=== PATIENT | female | born 1965 | race Caucasian/White ===

== ENCOUNTER → 2021-03-10 07:26 | Outpatient (CLI) | payer OTHER, SELFPAY ==
--- NOTE | ~2021-03-10 | US_ITS ---
EXAMINATION: US right upper quadrant DATE: 03/10/2021 08:22 INDICATION: Elevated liver function tests TECHNIQUE: Multiple grayscale and Doppler ultrasound images of the abdomen were obtained. COMPARISON: None available FINDINGS: The head, body, and tail of the pancreas are normal. The liver demonstrates increased echog enicity, heterogenous echotexture, and decreased through transmission. No surface nodularity. Normal hepatopetal flow in the main portal vein. The gallbladder is surgically absent. The normal common renee e duct measures 4 mm. IMPRESSION: 1. Diffuse hepatic steatosis. Reviewed, dictated and finalized at location A. RACTS ADMINISTRATOR
== END ==
PROVIDERS: PCP Nurse Practitioner Family
DX: R94.5 Abnormal results of liver function studies (principal); K76.0 Fatty (change of) liver, not elsewhere classified
CPT/HCPCS: 76705

== ENCOUNTER → 2022-01-03 16:53 | Outpatient (CLI) | payer OTHER, SELFPAY ==
--- NOTE | ~2022-01-03 | XR_ITS ---
XR hip LT min 2V 01/03/2022 17:14 Indication: Left hip pain Procedure: 2 views left hip Comparison: No prior studies for comparison. Findings: Moderate osteoarthritis of the left hip. No fracture or traumatic malalignment. No signific ant soft tissue abnormality. No foreign body. Impression: 1: Moderate osteoarthritis of the left hip. Reviewed, dictated and finalized at location A. Impression: 1: Moderate osteoarthritis of the left hip.
== END ==
PROVIDERS: PCP Chiropractor; Visit Provider Chiropractor
DX: M16.12 Unilateral primary osteoarthritis, left hip (principal)
CPT/HCPCS: 73502

== ENCOUNTER → 2022-11-05 12:49 | Outpatient (CLI) | payer OTHER, SELFPAY ==
--- NOTE | ~2022-11-05 | MR_ITS ---
EXAMINATION: MR hip LT wo/w con DATE: 11/05/2022 13:51 INDICATION: Left hip pain TECHNIQUE: Magnetic resonance imaging (MRI) of the left hip was performed without and with 15 mL Mul tihance intravenous contrast. Sequences included full-field axial PD-weighted FS FSE, T1-weighted FSE , T1-weighted FS FSE, coronal of the pelvis with PD-weighted FS FSE, T2-weighted FSE and T1-weighted FSE, small field of view of the left hip with axial PD-weighted FS FSE, sagittal PD-weighted FS FSE, coronal PD-weighted FS FSE and coronal T2 weighted FSE. Additional radial T1-weighted FGR oriented orthogonal to the acetabular rim were obtained for evaluation of the labrum. Postcontrast axial T1-we ighted FS FSE of the pelvis and coronal T1-weighted FS FSE of the left hip. COMPARISON: Left hip radiographs dated 01/03/2022 FINDINGS: Bones/labrum/cartilage: Alignment is normal. No fracture, avascular necrosis or pathologic marrow replacing process. Moderat e osteoarthritis at the bilateral hips with subarticular changes at the anterosuperior right acetabul um and at the anterior and anterosuperior to posterior superior left acetabulum. Tear at the anterosu perior to superolateral left acetabular labrum. Fluid: Relatively symmetric small amount of enhancing synovitis without significant joint effusion at both h ips. No abnormal fluid collections. Soft tissues: Normal and symmetric muscle bulk and signal in the pelvis and visualized proximal thighs. There are e nthesophytes at the greater trochanteric insertions of the bilateral gluteus medius medius and minimu s tendons. There is retraction of the myotendinous junction of the right gluteus medius tendon to 4 c m proximal to the greater trochanteric insertion with thinning of the tendon and without surrounding edema consistent with chronic partial tear. The bilateral rectus femoris, Iliopsoas and proximal hams tring tendons are normal. The uterus is not identified and has likely been surgically resected. Li mited evaluation of visceral organs of the pelvis is otherwise unremarkable. No pathologically enlar ged pelvic/inguinal lymphadenopathy. IMPRESSION: 1. Tear of the anterosuperior to superolateral left acetabular labrum with moderate osteoarthritis at the left hip. Similar findings suggested but not diagnostically evaluated the contralateral right hi p on the larger [id number] images. 2. 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 Reviewed, dictated and finalized at location L. IMPRESSION: 1. Tear of the anterosuperior to superolateral left acetabular labrum with mode rate osteoarthritis at the left hip. Similar findings suggested but not diagnos tically evaluated the contralateral right hip on the larger [id number] image s. 2. 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
== END ==
DX: M25.552 Pain in left hip (principal); S73.192A Other sprain of left hip, initial encounter; M16.12 Unilateral primary osteoarthritis, left hip; S76.812A Strain of other specified muscles, fascia and tendons at thigh level, left thigh, initial encounter
CPT/HCPCS: 73723; A9577